=== PATIENT | male | born 1975 | race Two or more races ===

== ENCOUNTER 2019-08-26 20:06 | Emergency (ER) | payer MEDICAID ==
[~2019-08-26] VITALS: Ht 190.5 cm; Wt 79.5 kg
[2019-08-26] MEDS ORDERED: ACETAMINOPHEN 500 MG TABLET PO ONE (21:45)
[2019-08-26] MEDS ORDERED: IBUPROFEN 600 MG TABLET PO ONE (21:45)
[2019-08-26] MEDS ORDERED: CEPHALEXIN MONOHYDRATE 500 MG CAPSULE PO ONE (21:45)
[2019-08-26] MEDS ORDERED: AZITHROMYCIN 250 MG TABLET PO ONE (22:15)
[2019-08-26] MEDS ORDERED: CefTRIAXone SODIUM 1 GM/VIAL IM ONE (22:15)
[2019-08-26 23:20] VITALS: BP 129/77
== END 2019-08-26 23:52 | disposition home or self-care (01) ==
LOC: EMS 20:08
DX: S13.8XXA Sprain of joints and ligaments of other parts of neck, initial encounter (principal); S93.692A Other sprain of left foot, initial encounter; L03.314 Cellulitis of groin; F17.210 Nicotine dependence, cigarettes, uncomplicated; Z59.0 Homelessness; Z98.890 Other specified postprocedural states; Y04.0XXA Assault by unarmed brawl or fight, initial encounter; Y93.89 Activity, other specified; Y92.89 Other specified places as the place of occurrence of the external cause; Y99.8 Other external cause status
CPT/HCPCS: 72040; 73630; 96372; 99284; 99406; J0696